=== PATIENT | female | born 1995 | race American Indian/Alaskan Native ===

== ENCOUNTER 2019-09-07 16:13 | Emergency (ER) | payer SELFPAY ==
[2019-09-07 16:24] VITALS: BP 120/74
== END 2019-09-07 20:57 | disposition left against medical advice (07) ==
LOC: ED 16:13
DX: R07.89 Other chest pain (principal); Z53.21 Procedure and treatment not carried out due to patient leaving prior to being seen by health care provider
CPT/HCPCS: 93005; 93010

== ENCOUNTER 2020-07-29 07:54 | Emergency (ER) | payer MEDICAID ==
[2020-07-29 08:33] VITALS: BP 110/84
[2020-07-29 08:37] LABS: Bilirubin,Urine NEG (Negative); Blood,Urine NEG (Negative); Color,Urine Yellow (Yellow); Hyaline Casts,Urine 1 /LPF; Mucus,Urine FEW /HPF; Protein,Urine <15 mg/dL mg/dL (Negative); RBC,Urine < 1.0 /HPF (0.0-6.0)
[2020-07-29 08:45] LABS: HCG Qualitative,Urine Negative (Negative)
--- NOTE | 2020-07-29 08:48 | Emergency Department Report ---
ED General Adult HPI - General Chief complaint: Abdominal Pain Stated complaint: STOMACH PAIN/CRAMPS Time Seen by Provider: 07/29/20 08:23 Source: patient Mode of arrival: Ambulatory Limitations: No Limitations - History of Present Illness Initial comments: 24-year-old -[place] female patient presents with complaints of intermittent lower abdominal cramping x3 days and bump to the right groin x4 days. Patient states the bump did drain purulent drainage 2 days ago. She admits to mild pain in the area and denies any redness. Patient denies any nausea/vomiting/diarrhea, melena/hematochezia, fever/chills/sweats, urinary frequency, dysuria, hematuria, abnormal vaginal bleeding, vaginal discharge, or dyspareunia. Patient states she is concerned that she may be . Last menstrual cycle was 2 weeks ago per patient. She also denies any history of abdominal surgeries - Related Data Previous Rx's Medication Instructions Recorded Last Taken Type Ciprofloxacin HCl [Ciprofloxacin 500 mg PO Q12HR #20 tab 01/25/20 Unknown Rx TAB] Phenazopyridine [Pyridium] 200 mg PO TID #20 tab 01/25/20 Unknown Rx Sulfamethoxazole/Trimethoprim 1 each PO BID 7 Days #14 tablet 07/29/20 Unknown Rx [Bactrim DS TAB] Allergies Allergy/AdvReac Type Severity Reaction Status Date / Time No Known Allergies Allergy Verified 07/29/20 07:58 ED Review of Systems ROS: Stated complaint: STOMACH PAIN/CRAMPS Other details as noted in HPI Constitutional: denies: chills, fever Cardiovascular: denies: chest pain Gastrointestinal: abdominal pain. denies: nausea, vomiting, diarrhea, constipation, hematemesis, melena, hematochezia Musculoskeletal: denies: back pain Skin: lesions. denies: rash, change in color Neurological: denies: headache Hematological/Lymphatic: denies: swollen glands ED Past Medical Hx - Past Medical History Previous Medical History?: No - Surgical History Hx Appendectomy: Yes - Social History Smoking Status: Never Smoker Substance Use Type: None - Medications Home Medications: Home Medications Medication Instructions Recorded Confirmed Last Taken Type Ciprofloxacin HCl [Ciprofloxacin 500 mg PO Q12HR #20 tab 01/25/20 Unknown Rx TAB] Phenazopyridine [Pyridium] 200 mg PO TID #20 tab 01/25/20 Unknown Rx Sulfamethoxazole/Trimethoprim 1 each PO BID 7 Days #14 tablet 07/29/20 Unknown Rx [Bactrim DS TAB] ED Physical Exam - General Limitations: No Limitations General appearance: alert, in no apparent distress - Head Head exam: Present: atraumatic, normocephalic - Eye Eye exam: Present: normal appearance - Respiratory Respiratory exam: Present: normal lung sounds bilaterally. Absent: respiratory distress - Cardiovascular Cardiovascular Exam: Present: regular rate, normal rhythm. Absent: systolic murmur, diastolic murmur, rubs, gallop - GI/Abdominal GI/Abdominal exam: Present: soft, normal bowel sounds. Absent: distended, tenderness, guarding, rebound, rigid - External exam: Present: other (Small right groin abscess noted without drainage, erythema, or fluctuance; there is mild tenderness to palpation) - Extremities Exam Extremities exam: Present: normal inspection - Back Exam Back exam: Present: normal inspection - Neurological Exam Neurological exam: Present: alert, oriented X3 - Psychiatric Psychiatric exam: Present: normal affect, normal mood - Skin Skin exam: Present: warm, dry, intact, normal color. Absent: rash ED Course Vital Signs 07/29/20 07:59 Temperature 98.1 F Pulse Rate 81 Respiratory 16 Rate Blood Pressure 110/84 O2 Sat by Pulse 99 Oximetry ED Medical Decision Making - Medical Decision Making 24-year-old -[place] female patient presents with complaints of intermittent lower abdominal cramping x3 days and bump to the right groin x4 days. Patient states the bump did drain purulent drainage 2 days ago. She admits to mild pain in the area and denies any redness. Patient denies any nausea/vomiting/diarrhea, melena/hematochezia, fever/chills/sweats, urinary frequency, dysuria, hematuria, abnormal vaginal bleeding, vaginal discharge, or dyspareunia. Patient states she is concerned that she may be . Last menstrual cycle was 2 weeks ago per patient. She also denies any history of abdominal surgeries No abdominal tenderness is noted on exam. UA and test are negative. Small healing abscess noted to right thigh that is nondraining and nonerythemic. There is mild tenderness to palpation. Will place patient on Bactrim and advised warm compresses. Her vitals are normal she is stable for discharge home. Strict return precautions were discussed in detail with patient who verbalized understanding. Recommend follow-up with PCP in 3 days. Critical care attestation.: If time is entered above; I have spent that time in minutes in the direct care of this critically ill patient, excluding procedure time. ED Disposition Clinical Impression: Ingrown hair, Abdominal cramping Disposition: - TO HOME OR SELFCARE Is pt being admited?: No Condition: Stable Instructions: Abdominal Pain, Adult, Ingrown Hair, Abdominal Pain (ED) Prescriptions: Sulfamethoxazole/Trimethoprim [Bactrim DS TAB] 1 each PO BID 7 Days #14 tablet Referrals: [facility] [Provider Group] - 3-5 Days
== END 2020-07-29 09:18 | disposition home or self-care (01) ==
LOC: ED 07:54
DX: R10.30 Lower abdominal pain, unspecified (principal); L73.1 Pseudofolliculitis barbae; Z79.2 Long term (current) use of antibiotics; Z79.899 Other long term (current) drug therapy; Z90.49 Acquired absence of other specified parts of digestive tract
CPT/HCPCS: 81001; 81025